=== PATIENT | male | born 1970 | race Caucasian/White ===

== ENCOUNTER 2020-04-18 01:19 | Outpatient (CLI) | payer BC, SELFPAY ==
[2020-04-18 18:17] LABS: SARS-CoV-2 RNA PCR Negative
== END 2020-04-18 01:20 | disposition home or self-care (01) ==
LOC: ANHCOVIDDT 01:19
PROVIDERS: PCP Family Medicine; Visit Provider Internal Medicine Gastroenterology
DX: Z01.812 Encounter for preprocedural laboratory examination (principal); Z20.828 Contact with and (suspected) exposure to other viral communicable diseases
CPT/HCPCS: 87635; C9803; U0003

== ENCOUNTER 2020-04-20 01:29 | Day surgery (SDC) | payer BC, SELFPAY ==
[2020-04-12 14:06] VITALS: BMI 33.5
[2020-04-20 08:04] VITALS: BP 141/85; PULSE 86; RESP 18; TEMP 36.3; O2SAT 98; BMI 34.1
--- NOTE | 2020-04-20 08:14 | WPDANESEPPF ---
Anes - Initial Pre Proc Eval Procedure: Operation Date: 04/20/20 09:00 Proposed Procedures p Screening Colonoscopy - Ventura Sanchez MD Date/Time: 04/20/20 08:14 Surgeon: Ventura Sanchez MD Pre Op Diagnosis: Neoplasm Screening Patient Data Age: 49 Gender: M Height: 6 ft Weight: 114.2 kg Last Vital Signs Temp 36.3 C L 04/20/20 08:04 Pulse 86 04/20/20 08:04 Resp 18 04/20/20 08:04 BP 141/85 H 04/20/20 08:04 Pulse Ox 98 04/20/20 08:04 Allergies Allergy/AdvReac Type Severity Reaction Status Date / Time No Known Allergies Verified 04/20/20 08:02 Home Medications Medication Instructions Recorded Confirmed Type allopurinol 300 mg tablet 300 mg PO DAILY 04/25/19 04/12/20 History aspirin 81 mg tablet,delayed 81 mg PO DAILY 04/25/19 04/12/20 History release lisinopril 20 mg tablet 20 mg PO DAILY #90 tablet 05/26/19 04/12/20 Rx amlodipine 10 mg tablet 10 mg PO DAILY #90 tablet 08/08/19 04/12/20 Rx triamterene 37.5 1 cap PO DAILY #90 cap 01/25/20 04/12/20 Rx mg-hydrochlorothiazide 25 mg capsule atorvastatin 10 mg tablet 10 mg PO DAILY #90 tablet 03/26/20 04/12/20 Rx metoprolol succinate 25 mg 25 mg PO DAILY #90 tablet 03/28/20 04/12/20 Rx tablet,extended release 24 hr Patient hx anesthesia problems: none Family hx anesthesia problems: none PMFSH Past Medical History Medical History Essential (primary) hypertension Gout, unspecified Irritable bowel syndrome Mixed hyperlipidemia Obesity (BMI 30.0-34.9) Rosacea Tension type headache, unspecified Tinea versicolor Family History Family History Father Diabetes mellitus Family history of obesity Hypertension Asthma Family history of cardiovascular disease Family history of pancreatic cancer Family history of diabetes mellitus in first degree relative Mother Cerebrovascular accident Family history of aortic aneurysm Social History Social History Smoking status: Never smoker Alcohol intake: current Substance use: never Substance use type: does not use Living arrangements: with family Spiritual care concerns: No Anes - Eval Final PreProcedure Day of Procedure 04/20/20 08:14 Patient weight: obese Heart: regular rate and rhythm Lungs: clear to auscultation Airway: Mallampati scale class II Neurological: alert and oriented Last oral intake: >/= 8 hours ASA classification: II Emergent: no Anesthetic plan: proceed Anesthesia type and monitoring: general GIVS and standard monitoring Informed Consent: The patient's anesthetic plan and its attendant risks and benefits were discussed with the patient/family/POA. Questions were solicited and answers provided to the satisfaction of the patient/family/POA.
[2020-04-20] MEDS: LACTATED RINGERS 1,000 ML 150 ML IV CONT (08:19)
--- NOTE | 2020-04-20 08:49 | WPDGICN ---
Assessment and Plan Assessment and plan (1) Encounter for screening colonoscopy: Code(s): Z12.11 - Encounter for screening for malignant neoplasm of colon Status: Acute Assessment and Plan: Patient presents for screening colonoscopy. Has been 10 years since last exam. Plan is for high-fiber diet. Further recommendations may be given after endoscopy. GI Consult Note Consult date/time: 04/20/20 08:49 HPI: Gian Self is a 49 year old male Presents for screening colonoscopy. He states that his current weight appetite bowel movements are normal. He denies abdominal pain. He has had no blood in his stools. Last colonoscopy was 2009 was unremarkable. Family history is significant his father had colon polyps. Review of Systems Review of Systems: All systems reviewed & are unremarkable except as noted in HPI and below PMFSH Past Medical History Medical History Essential (primary) hypertension Gout, unspecified Irritable bowel syndrome Mixed hyperlipidemia Obesity (BMI 30.0-34.9) Rosacea Tension type headache, unspecified Tinea versicolor Family History Family History Father Diabetes mellitus Family history of obesity Hypertension Asthma Family history of cardiovascular disease Family history of pancreatic cancer Family history of diabetes mellitus in first degree relative Mother Cerebrovascular accident Family history of aortic aneurysm Social History Social History Smoking status: Never smoker Alcohol intake: current Substance use: never Substance use type: does not use Living arrangements: with family Spiritual care concerns: No Meds Home Medications and Allergies Home Medications Medication Instructions Recorded Confirmed Type allopurinol 300 mg tablet 300 mg PO DAILY 04/25/19 04/12/20 History aspirin 81 mg tablet,delayed 81 mg PO DAILY 04/25/19 04/12/20 History release lisinopril 20 mg tablet 20 mg PO DAILY #90 tablet 05/26/19 04/12/20 Rx amlodipine 10 mg tablet 10 mg PO DAILY #90 tablet 08/08/19 04/12/20 Rx triamterene 37.5 1 cap PO DAILY #90 cap 01/25/20 04/12/20 Rx mg-hydrochlorothiazide 25 mg capsule atorvastatin 10 mg tablet 10 mg PO DAILY #90 tablet 03/26/20 04/12/20 Rx metoprolol succinate 25 mg 25 mg PO DAILY #90 tablet 03/28/20 04/12/20 Rx tablet,extended release 24 hr Allergies Allergy/AdvReac Type Severity Reaction Status Date / Time No Known Allergies Verified 04/20/20 08:02 Vital Signs Vital Signs - 24 hr 04/20/20 08:04 Temperature 97.3 F L Pulse Rate 86 Respiratory Rate 18 Blood Pressure 141/85 H Pulse Oximetry 98 Exam Narrative: Exam Narrative: physical exam reveals patient to be alert. Vital signs stable. HEENT exam unremarkable. Lungs are clear to auscultation and percussion. Heart is without murmur or extra sounds. Abdominal exam bowel sounds are present soft nontender with no hepatosplenomegaly. Digital external rectal exam is normal.
[2020-04-20 09:13] VITALS: BP 136/72; PULSE 72; RESP 16; O2SAT 98
[2020-04-20 09:23] VITALS: BP 128/73; PULSE 68; RESP 16; O2SAT 98
[2020-04-20 09:33] VITALS: BP 128/68; PULSE 70; RESP 16; O2SAT 98
== END 2020-04-20 10:07 | disposition home or self-care (01) ==
PROVIDERS: PCP Family Medicine; Visit Provider Internal Medicine Gastroenterology
PROC: 0DJD8ZZ Inspection of Lower Intestinal Tract, Via Natural or Artificial Opening Endoscopic (ICD-10-PCS; CPT 45378; principal; 2020-04-20 09:00)
DX: Z12.11 Encounter for screening for malignant neoplasm of colon (principal); K64.8 Other hemorrhoids; I10 Essential (primary) hypertension; E78.2 Mixed hyperlipidemia; K58.9 Irritable bowel syndrome, unspecified; M10.9 Gout, unspecified; E66.9 Obesity, unspecified; Z68.34 Body mass index [BMI] 34.0-34.9, adult
CPT/HCPCS: 45378; J2704; J7120

== ENCOUNTER → 2021-08-21 00:30 | Outpatient (CLI) | payer BC, SELFPAY ==
[2021-08-21 16:39] LABS: SARS-CoV-2 RNA PCR Negative
== END ==
PROVIDERS: PCP Family Medicine; Visit Provider Physician Assistant Medical
DX: R68.89 Other general symptoms and signs (principal); Z20.822 Contact with and (suspected) exposure to COVID-19
CPT/HCPCS: C9803; U0003; U0005

== ENCOUNTER 2024-09-06 14:12 | Outpatient (CLI) | payer BC, SELFPAY ==
--- NOTE | ~2024-09-06 | XR_ITS ---
CHEST RADIOGRAPH, PA AND LATERAL CLINICAL HISTORY: R05.9 - Cough, unspecified . COMPARISON: None available TECHNIQUE: PA and lateral views of the chest. FINDINGS The cardiomediastinal silhouette is unremarkable. The lungs are clear. Visualized osseous structures and soft tissues are unremarkable. IMPRESSION: No focal infiltrate or effusion. Reviewed, dictated and finalized at location A.
== END 2024-09-06 14:13 | disposition home or self-care (01) ==
PROVIDERS: PCP Family Medicine; Visit Provider Nurse Practitioner Family
DX: R05.9 Cough, unspecified (principal)
CPT/HCPCS: 71046